=== PATIENT | male | born 1950 | race Caucasian/White ===

== ENCOUNTER → 2020-11-17 15:03 | Outpatient (BNVA) | payer MEDICARE, OTHER, SELFPAY | PROVIDERS: PCP Internal Medicine; Visit Provider Surgery | DX: K43.2 Incisional hernia without obstruction or gangrene (principal) | CPT/HCPCS: 99202 ==

== ENCOUNTER 2020-11-18 11:36 | Outpatient (REF) | payer MEDICARE, OTHER, SELFPAY ==
--- NOTE | ~2020-11-18 | CT_ITS ---
EXAMINATION: CT ABDOMEN AND PELVIS WITH CONTRAST CLINICAL INFORMATION: Incisional hernia COMPARISON: May 06, 2008 TECHNIQUE: Multidetector volumetric images were obtained from the superior aspect of the liver through the pubic symphysis following administration 85 mL of Omnipaque 350 intravenous contrast. Sagittal and coronal reformatted images were obtained on the technologist's workstation. Oral contrast: No This CT examination was performed using dose optimization techniques as appropriate, variously including the following: *Automated exposure control *Adjustment of mA and/or kV according to patient size (this includes techniques or standardized protocols for targeted exams where dose is matched to indication/reason for exam; i.e. extremities or head) *Use of iterative reconstruction technique DLP: 1190 mGy-cm FINDINGS: LUNG BASES: The visualized lung bases are unremarkable. No pleural or pericardial effusion. There are some aortic valve and coronary artery calcifications present. LIVER, GALLBLADDER, AND BILIARY TREE: The liver is normal in size, shape, and attenuation. No focal hepatic lesion or biliary ductal dilatation is present. The gallbladder is unremarkable with no evidence of radiopaque gallstones, gallbladder wall thickening, or obvious pericholecystic inflammatory changes. PANCREAS: Unremarkable. SPLEEN: Unremarkable. ADRENAL GLANDS: Unremarkable. KIDNEYS AND URETERS: Right kidney: There is some cortical thinning present. About the posterior lateral aspect of the lower pole there is a heterogeneous density region measuring approximately 4.1 x 2.6 cm in size which is adjacent to what appears to be a small subcapsular collection. There appears to be some calcification or other dense material in portion of the structure. This may be postsurgical in nature and clinical correlation is suggested. There remains hydronephrosis with a right proximal ureteral calculus measuring 8 mm in diameter. Left kidney: There is a nonobstructing 7 mm calculus seen lower pole of the left kidney approximately 13 cm from the posterior mid axillary line. Adjacent to this is a 3 mm nonobstructing calculus. The larger calcification has Hounsfield unit measurements of between 500 and 600. No hydronephrosis identified. No suspicious renal lesions. No cortical thinning. Ureter appears unremarkable. BLADDER: Question mild wall thickening and irregularity however this may be related to its collapsed state. GASTROINTESTINAL TRACT: No dilated loops of large or small bowel are evident. No free air or free fluid. No pericolonic inflammatory change. The appendix appears unremarkable. ABDOMINAL WALL: There is some sutures seen midline anterior in a supraumbilical location. Just inferior to the sutures there is a fat-containing umbilical hernia with mouth width of approximately 2.4 cm in vertical length of 2.2 cm. LYMPH NODES: No lymphadenopathy appreciated. VASCULAR: Unremarkable. PELVIC VISCERA: Unremarkable. Prostatic calcification present. OSSEOUS STRUCTURES: No suspicious destructive bony lesion identified. There is multilevel degenerative disc disease seen throughout the lumbar spine. There is facet arthropathy L4-S1. CT/CT abdomen pelvis w con IMPRESSION: Fat-containing umbilical hernia with neck measuring 2.4 cm in width and 2.2 cm in height. Right renal atrophy and hydronephrosis with 8mm proximal right ureteral calculus. Bilateral nephrolithiasis. Probable postsurgical change adjacent to the right kidney as described.
[2020-11-18 13:43] LABS: Blood Urea Nitrogen 18 mg/dL (9-16); Estimated Glomerular Filt Rate > 60
[2020-11-18] MEDS: Barium Sulfate Oral (Mocha) 450 ML ORAL.SUSP 900 ML PO (14:21)
[2020-11-18] MEDS: iohexoL 350 MG/ML 100 ML INFUS..BTL 85 ML IV (14:21)
== END 2020-11-18 11:37 | disposition home or self-care (01) ==
LOC: HO.CT 11:36
PROVIDERS: Visit Provider Surgery
DX: K43.2 Incisional hernia without obstruction or gangrene (principal)
CPT/HCPCS: 36415; 74177; 82565; 84520; Q9967

== ENCOUNTER 2022-07-20 14:24 | Outpatient (REF) | payer MEDICARE, OTHER, SELFPAY ==
--- NOTE | ~2022-07-20 | XR_ITS ---
EXAMINATION: XR HIP, LEFT CLINICAL INFORMATION: Pain. COMPARISON: None TECHNIQUE: Two views of the left hip. FINDINGS: Bone alignment is normal. No fracture or dislocation. There is moderate osteoarthritis with joint space narrowing and osteophyte formation. There is a lucent centered round calcification in the soft tissues, question representing calcified granuloma in the buttock related to previous subcutaneous injection. XR/XR hip LT min 2V IMPRESSION: Left hip arthritis.
== END 2022-07-20 14:25 | disposition home or self-care (01) ==
LOC: HO.HMGCX 14:24
PROVIDERS: PCP Internal Medicine; Visit Provider Internal Medicine
DX: M25.552 Pain in left hip (principal)
CPT/HCPCS: 73502

== ENCOUNTER 2025-08-18 14:15 | Outpatient (AMB) | payer MEDICARE, OTHER, SELFPAY ==
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
[2025-08-18 14:32] VITALS: BP 178/84; PULSE 60; RESP 16; TEMP 36.4; O2SAT 99; BMI 36.2
[2025-08-18 14:59] VITALS: BP 171/79
--- OUTSIDE RECORDS SUMMARY | 2025-08-18 18:08 | XMS_ITS | Clinical Summary ---
Author Organization [address] Address [address] [place] [id number] Phone Care Team Providers Care Awning Spreader Name Role Phone Darrel Perez MD Primary Care Provider Social History Tobacco Use Types Packs/Day Years Used Date Smoking Tobacco: Never Assessed Sex and Gender Information Value Date Recorded Sex Assigned at Not on file Legal Sex Male 4:07 PM EST Gender Identity Not on file Sexual Orientation Not on file Plan of Treatment Health Maintenance Due Date Last Done Comments Colorectal Cancer Screening: Colonoscopy 1951 Diabetes: Annual Foot Exam 1961 Diabetes: Annual Retina Eye Exam 1961 DTaP,Tdap,and Td Vaccines (1 - Tdap) 1970 Hepatitis A Vaccines (1 of 2 - Risk 2-dose series) 1970 Pneumococcal Vaccine: 50+ Years (1 of 1 - PCV) 2001 RSV Immunization Adult Patients (1 - Risk 50-74 years 1-dose series) 2001 Zoster Vaccines (1 of 2) 2001 Hepatitis B Vaccines (1 of 3 - Risk 3-dose series) 2011 Depression Screening 09/24/2024 Abdominal Aortic Aneurysm (AAA) Screen 11/29/2024 Cholesterol Screening (Lipid Panel) 11/29/2024 Falls Risk Assessment 11/29/2024 Hepatitis C Screening 11/29/2024 Medicare Annual Wellness Visit 11/29/2024 Social Influencers of Health Screening 11/29/2024 Diabetes: Blood Sugar Contro l Test (HGBA1C) 12/01/2024 05/09/2023 COVID-19 Vaccine (2024-2 6 season) 2025 07/19/2021, 12/13/2020, 11/22/2020 Influenza Vaccine (#1) 2025 Diabetes: Annual GFR (Glomerular Filtration Rate) 06/05/2025 06/05/2024 Hypertension/CHF/CAD Annual BMP Blood Test 06/05/2025 06/05/2024 Diabetes: Annual Urine Albumin-Creatinine Ratio (uACR) 10/27/2025 10/27/2024 HIB Vaccines Aged Out No longer eligi ble based on patient's age to complete this topic HPV Vaccines Aged Out No longer eligi ble based on patient's age to complete this topic IPV Vaccines Aged Out No longer eligi ble based on patient's age to complete this topic MMR Vaccines Aged Out No longer eligi ble based on patient's age to complete this topic Meningococcal ACWY Vaccine Aged Out N o longer eligible based on patient's age to complete this topic Meningococcal B Vaccine Aged Out No l onger eligible based on patient's age to complete this topic RSV Immunization Patients Under 20 months Aged Out No longer eligible b ased on patient's age to complete this topic Varicella Vaccines Aged Out No longer eligible based on patient's age to complete this topic Insurance MEDICARE MEDICARE Advance Directives Documents on File Type Date Recorded Patient Pathology Secretary/Transcriptionist Expl anation Health Care Decision (hx) 02/01/2021 LUPE ARECHIGA DIRECTIVE Care Teams Awning Spreader Relationship Specialty Start Date End Date Darrel Perez MD [address] [place] PCP - General Internal Medicine 12/01/24
--- OUTSIDE RECORDS SUMMARY | 2025-08-18 18:08 | XMS_ITS | Clinical Summary ---
Author Organization Formerly [facility] Address [address] [place] [id number] Care Team Providers Care Electrical Linesworker Name Role Phone Darrel Perez MD Primary Care Provider [phone] Allergies No known active allergies Medications acetaminophen (TYLENOL) 325 MG tablet Take 975 mg by mouth 4 times daily (every 6 hours) as needed for mild pain or moderate pain. Active apixaban (ELIQUIS) 5 MG tablet Take 7.5 mg by mouth 2 (two) times a day. 7.5mg x 7 days then resume 5mg Active atenolol (TENORMIN) 25 MG tablet Take 25 mg by mouth daily. Active atorvastatin (LIPITOR) 40 MG tablet Take 40 mg by mouth daily. Active docusate sodium (COLACE) 100 MG capsule Take 100 mg by mouth 2 (two) times a day. Active flecainide (TAMBOCOR) 150 MG tablet Take 150 mg by mouth twice daily (every 12 hours). Active lisinopril (PRINIVIL,ZeSTR IL) 10 MG tablet Take 10 mg by mouth daily. Active metFORMIN (GLUCOPHAGE) 500 MG tablet Take 500 mg by mouth daily. Active PANTOprazole (PROTONIX) 40 MG EC tablet Take 40 mg by mouth daily. Active oxyCODONE (OXY-IR) 5 MG capsule Take 5 mg by mouth every 4 (four) hours as needed for moderate pain or severe pain. 1-2 tabs (5-10mg) Active traMADol (ULTRAM) 50 MG tablet Take 50 mg by mouth 4 times daily (every 6 hours) as needed for moderate pain or severe pain. Active Social History Tobacco Use Types Packs/Day Years Used Date Smoking Tobacco: Never Assessed OASIS D0700: Social Isolation Answer Da te Recorded Frequency of experiencing loneliness or isolatio n Never 01/20/2023 OASIS A1250: Transportation Answer Date Recorded Lack of Transportation (Medical) No 01/20/2023 Lack of Transportation (Non-Medical) No 01/20/2023 Patient Unable or Declines to Respond No 01/20/2023 Sex and Gender Information Value Date Recorded Sex Assigned at Not on file Legal Sex Male 10:51 AM EDT Gender Identity Not on file Sexual Orientation Not on file Last Filed Vital Signs Vital Sign Reading Time Taken Comments Blood Pressure 130/88 01/18/2023 12:55 PM EDT as ymptomatic Pulse 50 01/18/2023 12:55 PM EDT Temperature 35.9 C (96.6 F) 01/18/2023 12:55 PM EDT Respiratory Rate 16 01/10/2023 10:55 AM EDT Oxygen Saturation 98% 01/18/2023 12:55 PM EDT Inhaled Oxygen Concentration - - Weight 122 kg (270 lb) 01/09/2023 9:40 AM EDT Height 188 cm (6' 2 ) 01/09/2023 9:40 AM EDT Body Mass Index 34.67 01/09/2023 9:40 AM EDT Plan of Treatment Health Maintenance Due Date Last Done Comments Advance Care Planning 1950 Hepatitis C Virus Screening 1950 DTaP/Tdap/Td Vaccines (1 - Tdap) 1970 Colonoscopy 1996 Pneumococcal Vaccines 50+ (1 of 1 - PCV) 2001 Zoster (Shingles) Vaccine (1 of 2) 2001 Influenza Vaccine 04/24/2025 COVID-19 Vaccine (1 - 2023-2 5 season) 2025 RSV Vaccine 50 years and old er and Patients (1 - 1-dose 75+ series) 2026 Hepatitis B Vaccines Aged Out No long er eligible based on patient's age to complete this topic Insurance MEDICARE PART A & B [facility] Care Teams Electrical Linesworker Relationship Specialty Start Date End Date Darrel Perez MD [address] [place] [address] [place] [id number] PCP - General Internal Medicine 01/05/23
--- OUTSIDE RECORDS SUMMARY | 2025-08-18 18:08 | XMS_ITS | Encounter Summary ---
Author Organization [facility] Address [address] [place] [address] Care Team Providers Care Ammunition Assembly I Laborer Name Role Phone Darrel Perez MD Primary Care Provider [phone] Encounter Details Date Type Department Care Team (Late st Contact Info) Description 11/28/2024 Lab Requisition [facility] - Main Lab [address] [facility] [place] [address] Darrel Fontana MD [address] [facility] [address] [place] [address] Urinary tract infection, site not specified; Acute cystitis with hematuria Social History Tobacco Use Types Packs/Day Years Used Date Smoking Tobacco: Never Assessed Sex and Gender Information Value Date Recorded Sex Assigned at Not on file Legal Sex Male 4:07 PM EST Gender Identity Not on file Sexual Orientation Not on file documented as of this encounter Plan of Treatment Not on file documented as of this encounter Procedures Procedure Name Priority Date/Time Associated Diagnosis Comments CULTURE URINE Routine 11/28/2024 2:15 PM EST Urinary tract infection, site not specified Acute cystitis with hematuria documented in this encounter Results * (ABNORMAL) Culture urine (11/28/2024 2:15 PM EST) Culture, Urine >100,000 CFU/mL Enterococcus faecalis(A) BRIAN 11/30/2024 11:43 AM EDT [facility] Comment: Edited result: Previously reported as Enterococcus species on 11/29/2024 at 1333 EST. Urine Urine specimen obtained by clean catch procedure / Unknown 11/28/2024 2:15 PM EST 11/28/2024 6:08 PM EST Narrative Organism Antibiotic Method Susceptibility Enterococcus faecalis Benzylpenicillin BRIAN 2 ug/ml: Susceptible Enterococcus faecalis Ampicillin BRIAN <=2 ug/ml: Susceptible Enterococcus faecalis Ciprofloxacin BRIAN <=0.5 ug/ml: Susceptible Enterococcus faecalis Levofloxacin BRIAN 1 ug/ml: Susceptible Enterococcus faecalis Linezolid BRIAN 2 ug/ml: Susceptible Enterococcus faecalis Vancomycin BRIAN <=0.5 ug/ml: Susceptible Enterococcus faecalis Tetracycline BRIAN >=16 ug/ml: Resistant Enterococcus faecalis Nitrofurantoin BRIAN <=16 ug/ml: Susceptible us Darrel Fontana MD LAB MICROBIOLOGY - GENERAL ORDERABLES Final Result [facility] ([facility]) [facility] [address] [place] [address], documented in this encounter Visit Diagnoses Diagnosis Urinary tract infection, site not specified Acute cystitis with hematuria documented in this encounter Care Teams Ammunition Assembly I Laborer Relationship Specialty Start Date End Date Darrel Perez MD [address] [place] [address] PCP - General Internal Medicine 12/01/24 documented as of this encounter
== END 2025-08-18 15:06 | disposition home or self-care (01) ==
LOC: HO.HMCSH 14:15
PROVIDERS: PCP Internal Medicine; Visit Provider Internal Medicine
DX: I10 Essential (primary) hypertension (principal)

== ENCOUNTER → 2025-08-18 14:15 | Outpatient (BNVA) | payer MEDICARE, OTHER, SELFPAY | PROVIDERS: PCP Internal Medicine; Visit Provider Internal Medicine | DX: I10 Essential (primary) hypertension (principal) | CPT/HCPCS: 99212 ==